=== PATIENT | female | born 1955 | race Caucasian/White ===

== ENCOUNTER 2016-04-24 14:12 | Inpatient (IN) | payer MEDICARE, OTHER ==
[~2016-04-24] VITALS: Ht 152.4 cm; Wt 66.2 kg
[~2016-04-24 14:12] MED LIST: ARIP10TA14 PO; DIVA500T52 PO; DIVA500T69 PO; DSS100 PO; LEVE500T53 PO; TOPI100 PO
[2016-04-24 15:41] LABS: BASOPHILS % (AUTO) 0.3 % (0.0-2.0); HEMOGLOBIN 12.8 g/dL (12.0-16.0); LYMPHOCYTES # (AUTO) 2.2 K/uL (1.0-4.8); LYMPHOCYTES % (AUTO) 52.6 % (22.0-44.0); MEAN CORPUSCULAR HEMOGLOBIN 30.3 pg (26.0-34.0); MEAN CORPUSCULAR HGB CONC 32.9 G/dL (31.0-37.0); MEAN CORPUSCULAR VOLUME 92 fL (80-100); MONOCYTES # (AUTO) 0.5 K/uL (0.1-1.0); MONOCYTES % (AUTO) 11.1 % (2.0-9.0); NEUTROPHILS # (AUTO) 1.4 K/uL (1.8-7.7); PLATELET COUNT (AUTO) 102 K/uL (150-450); RED BLOOD CELL COUNT(AUTO) 4.24 MIL/uL (4.00-5.20); RED CELL DISTRIBUTION WIDTH 15.7 % (11.5-14.5); WHITE BLOOD COUNT (AUTO) 4.1 K/uL (4.5-11.0)
[2016-04-24 16:13] LABS: CALCIUM, TOTAL 8.5 mg/dL (8.8-10.5); CREATININE 1.17 mg/dL (0.60-1.30); POTASSIUM 3.9 mmol/L (3.5-5.1)
[2016-04-24 16:19] LABS: ALBUMIN 3.4 g/dL (3.4-5.0); BILIRUBIN,TOTAL 0.3 mg/dL (0.1-1.0); TOTAL PROTEIN, SERUM 6.5 g/dL (6.4-8.2)
[2016-04-24] MEDS ORDERED: LORazepam 1 MG TABLET PO ONE (17:15)
[2016-04-24] MEDS ORDERED: LevETIRAcetam 500 MG TABLET PO ONE ×2 (17:15→21:00)
[2016-04-24] MEDS ORDERED: TOPIRAMATE 100 MG TABLET PO ONE (21:00)
[2016-04-24] MEDS ORDERED: ARIPiprazole 10 MG TABLET PO ONE (21:00)
[2016-04-25] MEDS ORDERED: ONDANSETRON HCL 4 MG/2 ML VIAL IVP PRN ×2 (10:15→12:45)
[2016-04-25] MEDS ORDERED: ACETAMINOPHEN 325 MG TABLET PO PRN (10:15)
[2016-04-25] MEDS ORDERED: IPRATROPIUM BROMIDE 0.5 MG/2.5 ML NEB SOLUTION NEB PRN (12:45)
[2016-04-25] MEDS ORDERED: ALBUTEROL SULFATE 2.5 MG/0.5 ML NEB SOLUTION NEB PRN (12:45)
[2016-04-25] MEDS ORDERED: ZOLPIDEM TARTRATE 5 MG TABLET PO PRN (12:45)
[2016-04-25] MEDS ORDERED: MAGNESIUM HYDROXIDE SUSPENSION 30 ML UDCUP PO PRN (12:45)
[2016-04-25] MEDS ORDERED: BISACODYL 10 MG RECTAL RECTAL SUPPOSITORY PR PRN (12:45)
[2016-04-25 12:52] VITALS: BP 116/81
[2016-04-25 16:08] VITALS: BP 124/73
[2016-04-25 17:34] LABS: APPEARANCE,URINE CLEAR (CLEAR); GLUCOSE, URINE (UA) NEGATIVE (NEGATIVE); KETONES,URINE NEGATIVE (NEGATIVE); LEUKOCYTE ESTERASE ,URINE SMALL (NEGATIVE); OCCULT BLOOD,URINE NEGATIVE (NEGATIVE); PROTEIN,URINE NEGATIVE (NEGATIVE)
[2016-04-25 17:36] LABS: ADD UA MICROSCOPIC YES
[2016-04-25 17:46] LABS: RBC,URINE 0-2 /HPF (0-2); SQUAMOUS EPITHELIAL CELL,UR Few /LPF (None Seen)
[2016-04-25] MEDS: DOCUSATE SODIUM 100 MG CAPSULE PO SCH (19:53)
[2016-04-25] MEDS: ARIPiprazole 10 MG TABLET PO SCH (19:53)
[2016-04-25] MEDS: LevETIRAcetam 500 MG TABLET PO SCH (19:54)
[2016-04-25] MEDS: DIVALPROEX SODIUM 500 MG ER TABLET PO SCH (19:54)
[2016-04-25] MEDS: TOPIRAMATE 100 MG TABLET PO SCH (19:55)
[2016-04-25 20:36] VITALS: BP 126/76
[2016-04-25] MEDS ORDERED: SODIUM CHLORIDE 0.9% 250 ML IV ONE (21:50)
[2016-04-26 00:04] VITALS: BP 120/74
[2016-04-26] MEDS ORDERED: SODIUM CHLORIDE 0.9% 1,000 ML IV ONE (02:04)
[2016-04-26 04:55] VITALS: BP 100/55
[2016-04-26 07:22] LABS: BASOPHILS % (AUTO) 0.4 % (0.0-2.0); EOSINOPHILS % (AUTO) 3.3 % (1.0-6.0); HEMATOCRIT 39.5 % (36-46); HEMOGLOBIN A1C 5.8 % (4.5-6.2); LYMPHOCYTES # (AUTO) 2.8 K/uL (1.0-4.8); LYMPHOCYTES % (AUTO) 61.8 % (22.0-44.0); MEAN CORPUSCULAR HEMOGLOBIN 30.6 pg (26.0-34.0); MEAN CORPUSCULAR HGB CONC 32.9 G/dL (31.0-37.0); MEAN CORPUSCULAR VOLUME 93 fL (80-100); MONOCYTES # (AUTO) 0.6 K/uL (0.1-1.0); MONOCYTES % (AUTO) 12.3 % (2.0-9.0); NEUTROPHILS % (AUTO) 22.2 % (40.0-70.0); PLATELET COUNT (AUTO) 108 K/uL (150-450); RED BLOOD CELL COUNT(AUTO) 4.25 MIL/uL (4.00-5.20); RED CELL DISTRIBUTION WIDTH 16.6 % (11.5-14.5); WHITE BLOOD COUNT (AUTO) 4.6 K/uL (4.5-11.0)
[2016-04-26 07:57] LABS: ANION GAP 9 mmol/L (8-16); CALCIUM, TOTAL 8.6 mg/dL (8.8-10.5); CARBON DIOXIDE 26 mmol/L (22-29); CHLORIDE 110 mmol/L (98-107); CHOL/HDL RATIO 1.8 (3.9-5.7); CREATINE KINASE, TOTAL 40 U/L (26-192); CREATININE 1.01 mg/dL (0.60-1.30); GLOMERULAR FILTR. RATE CALC 56 mL/min (>60); POTASSIUM 3.4 mmol/L (3.5-5.1); SODIUM SERUM 145 mmol/L (136-145); THYROID STIMULATING HORMONE 5.02 uIU/mL (0.36-3.74); UREA NITROGEN, BLOOD 20 mg/dL (7-18)
[2016-04-26] MEDS: DIVALPROEX SODIUM 500 MG ER TABLET PO SCH ×2 (08:17→20:18)
[2016-04-26] MEDS: DOCUSATE SODIUM 100 MG CAPSULE PO SCH ×2 (08:17→20:17)
[2016-04-26] MEDS: PANTOPRAZOLE SODIUM 40 MG DR TABLET PO SCH (08:17)
[2016-04-26] MEDS: LevETIRAcetam 500 MG TABLET PO SCH ×2 (08:17→20:19)
[2016-04-26] MEDS: ENOXAPARIN SODIUM 40 MG/0.4 ML PF SYRINGE SQ SCH (08:18)
[2016-04-26 08:25] VITALS: BP 113/83
[2016-04-26] MEDS ORDERED: POTASSIUM CHL 10 MEQ/WATER 50 ML IV PRN (11:45)
[2016-04-26] MEDS ORDERED: POTASSIUM CHLORIDE 20 MEQ ER TABLET PO PRN (11:45)
[2016-04-26] MEDS: LEVOFLOXACIN 500 MG/D5% WATER 100 ML IV SCH (12:39)
[2016-04-26] MEDS ORDERED: ACETAMINOPHEN 650 MG/20.3 ML SOLUTION UDCUP PO PRN (14:15)
[2016-04-26] MEDS: ACETAMINOPHEN 325 MG TABLET PO PRN (14:50)
[2016-04-26 15:24] VITALS: BP 120/75
[2016-04-26] MEDS: ARIPiprazole 10 MG TABLET PO SCH (20:19)
[2016-04-26] MEDS: TOPIRAMATE 100 MG TABLET PO SCH (20:19)
[2016-04-26] MEDS: MIRTAZAPINE 15 MG TABLET PO SCH (20:19)
[2016-04-26 20:30] VITALS: BP 116/80
[2016-04-26 23:00] VITALS: BP 115/79
[2016-04-27] MEDS: ACETAMINOPHEN 325 MG TABLET PO PRN ×2 (00:57→23:00)
[2016-04-27 04:00] VITALS: BP 137/80
[2016-04-27] MEDS: LEVOTHYROXINE SODIUM 25 MCG TABLET PO SCH (06:19)
[2016-04-27 07:15] VITALS: BP 112/79
[2016-04-27] MEDS: PANTOPRAZOLE SODIUM 40 MG DR TABLET PO SCH (09:00)
[2016-04-27] MEDS: DOCUSATE SODIUM 100 MG CAPSULE PO SCH ×2 (09:00→21:12)
[2016-04-27] MEDS: DIVALPROEX SODIUM 500 MG ER TABLET PO SCH ×2 (09:00→20:14)
[2016-04-27] MEDS: LevETIRAcetam 500 MG TABLET PO SCH ×2 (09:00→20:14)
[2016-04-27] MEDS: ENOXAPARIN SODIUM 40 MG/0.4 ML PF SYRINGE SQ SCH (09:00)
[2016-04-27 09:56] LABS: BASOPHILS % (AUTO) 0.2 % (0.0-2.0); EOSINOPHILS % (AUTO) 2.2 % (1.0-6.0); HEMATOCRIT 41.1 % (36-46); HEMOGLOBIN 13.4 g/dL (12.0-16.0); LYMPHOCYTES # (AUTO) 3.4 K/uL (1.0-4.8); LYMPHOCYTES % (AUTO) 65.8 % (22.0-44.0); MEAN CORPUSCULAR HEMOGLOBIN 30.2 pg (26.0-34.0); MEAN CORPUSCULAR HGB CONC 32.6 G/dL (31.0-37.0); MEAN CORPUSCULAR VOLUME 92 fL (80-100); MONOCYTES # (AUTO) 0.5 K/uL (0.1-1.0); MONOCYTES % (AUTO) 10.4 % (2.0-9.0); NEUTROPHILS # (AUTO) 1.1 K/uL (1.8-7.7); NEUTROPHILS % (AUTO) 21.4 % (40.0-70.0); PLATELET COUNT (AUTO) 126 K/uL (150-450); RED BLOOD CELL COUNT(AUTO) 4.44 MIL/uL (4.00-5.20); RED CELL DISTRIBUTION WIDTH 16.2 % (11.5-14.5); WHITE BLOOD COUNT (AUTO) 5.2 K/uL (4.5-11.0)
[2016-04-27] MEDS: LEVOFLOXACIN 500 MG/D5% WATER 100 ML IV SCH (12:00)
[2016-04-27 15:00] VITALS: BP 135/83
[2016-04-27 19:49] VITALS: BP 114/90
[2016-04-27] MEDS: ARIPiprazole 10 MG TABLET PO SCH (20:14)
[2016-04-27] MEDS: TOPIRAMATE 100 MG TABLET PO SCH (20:16)
[2016-04-27] MEDS: MIRTAZAPINE 15 MG TABLET PO SCH (20:17)
[2016-04-28] MEDS: LEVOTHYROXINE SODIUM 25 MCG TABLET PO SCH (06:15)
[2016-04-28 06:17] VITALS: BP 106/85
[2016-04-28] MEDS: ENOXAPARIN SODIUM 40 MG/0.4 ML PF SYRINGE SQ SCH (08:11)
[2016-04-28] MEDS: DIVALPROEX SODIUM 500 MG ER TABLET PO SCH (08:12)
[2016-04-28] MEDS: PANTOPRAZOLE SODIUM 40 MG DR TABLET PO SCH (08:12)
[2016-04-28] MEDS: DOCUSATE SODIUM 100 MG CAPSULE PO SCH (08:12)
[2016-04-28] MEDS: LevETIRAcetam 500 MG TABLET PO SCH (08:14)
[2016-04-28 08:15] LABS: BASOPHILS % (AUTO) 0.3 % (0.0-2.0); EOSINOPHILS % (AUTO) 1.8 % (1.0-6.0); HEMATOCRIT 42.3 % (36-46); HEMOGLOBIN 13.9 g/dL (12.0-16.0); LYMPHOCYTES # (AUTO) 3.2 K/uL (1.0-4.8); LYMPHOCYTES % (AUTO) 63.3 % (22.0-44.0); MEAN CORPUSCULAR HEMOGLOBIN 30.6 pg (26.0-34.0); MEAN CORPUSCULAR HGB CONC 32.9 G/dL (31.0-37.0); MEAN CORPUSCULAR VOLUME 93 fL (80-100); MONOCYTES # (AUTO) 0.5 K/uL (0.1-1.0); MONOCYTES % (AUTO) 10.7 % (2.0-9.0); NEUTROPHILS # (AUTO) 1.2 K/uL (1.8-7.7); NEUTROPHILS % (AUTO) 23.9 % (40.0-70.0); PLATELET COUNT (AUTO) 118 K/uL (150-450); RED BLOOD CELL COUNT(AUTO) 4.56 MIL/uL (4.00-5.20); RED CELL DISTRIBUTION WIDTH 15.9 % (11.5-14.5)
== END 2016-04-28 12:30 | DRG 101 ==
LOC: EMS 14:15 → 6N 04-25 11:58
PROVIDERS: ADMIT Internal Medicine Geriatric Medicine; ATTEND Internal Medicine Geriatric Medicine
DX: G40.909 Epilepsy, unspecified, not intractable, without status epilepticus (principal); N39.0 Urinary tract infection, site not specified; R56.9 Unspecified convulsions; D69.6 Thrombocytopenia, unspecified; D72.819 Decreased white blood cell count, unspecified; R26.9 Unspecified abnormalities of gait and mobility; K21.9 Gastro-esophageal reflux disease without esophagitis; J44.9 Chronic obstructive pulmonary disease, unspecified; F25.0 Schizoaffective disorder, bipolar type; M19.90 Unspecified osteoarthritis, unspecified site; F79 Unspecified intellectual disabilities; K59.00 Constipation, unspecified; E78.5 Hyperlipidemia, unspecified; E78.00 Pure hypercholesterolemia, unspecified; E55.9 Vitamin D deficiency, unspecified; E03.9 Hypothyroidism, unspecified; D64.9 Anemia, unspecified; R27.0 Ataxia, unspecified; E87.6 Hypokalemia; G24.01 Drug induced subacute dyskinesia; Z87.891 Personal history of nicotine dependence; Z98.890 Other specified postprocedural states; Z95.0 Presence of cardiac pacemaker; Z88.5 Allergy status to narcotic agent; Z88.6 Allergy status to analgesic agent; Z91.19 Patient's noncompliance with other medical treatment and regimen; Z88.0 Allergy status to penicillin; Z79.899 Other long term (current) drug therapy; Z83.3 Family history of diabetes mellitus
CPT/HCPCS: 70450; 82306; 82607; 82746; 83036; 83735; 84132; 84439; 84443; 87086; 97161; 99285; G0482; J1650; J1956; J7030; J7050

== ENCOUNTER 2016-05-04 23:13 | Emergency (ER) | payer MEDICARE, OTHER ==
[~2016-05-04] VITALS: Ht 162.6 cm; Wt 65.9 kg
[2016-05-04] MEDS ORDERED: PANT40TA25 PO (23:47)
[2016-05-04] MEDS ORDERED: AUD NEB (23:47)
[2016-05-04] MEDS ORDERED: LEVO25TA9 PO (23:47)
[2016-05-04] MEDS ORDERED: MIRT15 PO (23:47)
[2016-05-05 00:52] LABS: BASOPHILS % (AUTO) 0.2 % (0.0-2.0); EOSINOPHILS % (AUTO) 0.3 % (1.0-6.0); HEMATOCRIT 41.9 % (36-46); HEMOGLOBIN 13.9 g/dL (12.0-16.0); LYMPHOCYTES # (AUTO) 2.3 K/uL (1.0-4.8); LYMPHOCYTES % (AUTO) 44.2 % (22.0-44.0); MEAN CORPUSCULAR HEMOGLOBIN 30.5 pg (26.0-34.0); MEAN CORPUSCULAR HGB CONC 33.1 G/dL (31.0-37.0); MEAN CORPUSCULAR VOLUME 92 fL (80-100); MONOCYTES # (AUTO) 0.6 K/uL (0.1-1.0); MONOCYTES % (AUTO) 11.3 % (2.0-9.0); NEUTROPHILS # (AUTO) 2.2 K/uL (1.8-7.7); PLATELET COUNT (AUTO) 106 K/uL (150-450); RED BLOOD CELL COUNT(AUTO) 4.55 MIL/uL (4.00-5.20); RED CELL DISTRIBUTION WIDTH 16.4 % (11.5-14.5); WHITE BLOOD COUNT (AUTO) 5.1 K/uL (4.5-11.0)
[2016-05-05 00:57] LABS: ANION GAP 11 mmol/L (8-16); CALCIUM, TOTAL 8.1 mg/dL (8.8-10.5); CARBON DIOXIDE 28 mmol/L (22-29); CHLORIDE 104 mmol/L (98-107); CREATININE 1.12 mg/dL (0.60-1.30); GLOMERULAR FILTR. RATE CALC 50 mL/min (>60); POTASSIUM 3.6 mmol/L (3.5-5.1); SODIUM SERUM 143 mmol/L (136-145); UREA NITROGEN, BLOOD 37 mg/dL (7-18)
[2016-05-05 01:04] LABS: ALANINE AMINOTRANSFERASE 30 U/L (12-78); ALBUMIN 3.3 g/dL (3.4-5.0); ASPARTATE AMINOTRANSFERASE 47 U/L (15-37); BILIRUBIN,TOTAL 0.4 mg/dL (0.1-1.0); TOTAL PROTEIN, SERUM 6.9 g/dL (6.4-8.2)
[2016-05-05 01:18] LABS: VALPROIC ACID 77 mcg/mL (50-100)
[2016-05-05 02:38] VITALS: BP 113/75
== END 2016-05-05 03:04 | disposition home or self-care (01) ==
LOC: EMS 23:15
DX: F25.9 Schizoaffective disorder, unspecified (principal); J44.9 Chronic obstructive pulmonary disease, unspecified; E03.9 Hypothyroidism, unspecified; E78.00 Pure hypercholesterolemia, unspecified; K21.9 Gastro-esophageal reflux disease without esophagitis; Z88.0 Allergy status to penicillin; Z88.6 Allergy status to analgesic agent
CPT/HCPCS: 36415; 71010; 80053; 80164; 84484; 85025; 93005; 99285; G0480

== ENCOUNTER 2022-10-08 19:03 | Emergency (ER) | payer MEDICARE, MEDICAID ==
[~2022-10-08] VITALS: Ht 152.4 cm; Wt 84.1 kg
[~2022-10-08 19:03] MED LIST changes: +ALBU2.5V39 NEB; -ARIP10TA14 PO; +ARIP10TA38 PO; -DIVA500T52 PO; +DIVA500T53 PO; -DSS100 PO; +LEVE500T20 PO; -LEVE500T53 PO; +LEVO25TA9 PO; +MIRT-89 PO; +PANT-31 PO; -TOPI100 PO; +TOPI100T37 PO
[2022-10-08 21:11] LABS: BASOPHILS % (AUTO) 0.5 % (0.0-2.0); EOSINOPHILS % (AUTO) 1.6 % (1.0-6.0); HEMATOCRIT 37.4 % (36-46); HEMOGLOBIN 12.5 g/dL (12.0-16.0); LYMPHOCYTES # (AUTO) 2.5 K/uL (1.0-4.8); LYMPHOCYTES % (AUTO) 34.7 % (22.0-44.0); MEAN CORPUSCULAR HEMOGLOBIN 30.7 pg (26.0-34.0); MEAN CORPUSCULAR HGB CONC 33.3 G/dL (31.0-37.0); MEAN CORPUSCULAR VOLUME 92 fL (80-100); MONOCYTES # (AUTO) 0.7 K/uL (0.1-1.0); MONOCYTES % (AUTO) 9.3 % (2.0-9.0); NEUTROPHILS # (AUTO) 3.8 K/uL (1.8-7.7); NEUTROPHILS % (AUTO) 53.9 % (40.0-70.0); PLATELET COUNT (AUTO) 191 K/uL (150-450); RED BLOOD CELL COUNT(AUTO) 4.05 MIL/uL (4.00-5.20); RED CELL DISTRIBUTION WIDTH 14.9 % (11.5-14.5)
[2022-10-08 21:29] LABS: ASPARTATE AMINOTRANSFERASE 5 U/L (15-37); CARBON DIOXIDE 26 mmol/L (22-29); CREATININE 1.07 mg/dL (0.60-1.30); GLOMERULAR FILTR. RATE CALC 51 mL/min (>60); GLUCOSE,RANDOM 105 mg/dL (70-110)
[2022-10-08 22:01] LABS: ALANINE AMINOTRANSFERASE 14 U/L (12-78); ALBUMIN 3.6 g/dL (3.4-5.0); ALKALINE PHOSPHATASE 106 U/L (46-116); ANION GAP 11 mmol/L (8-16); BILIRUBIN,TOTAL 0.2 mg/dL (0.1-1.0); CHLORIDE 105 mmol/L (98-107); POTASSIUM 3.6 mmol/L (3.5-5.1); SODIUM SERUM 142 mmol/L (136-145); TOTAL PROTEIN, SERUM 7.2 g/dL (6.4-8.2)
[2022-10-09 00:54] VITALS: TEMP 98.3
[2022-10-09] MEDS ORDERED: LORazepam 2 MG TABLET PO ONE (01:45)
[2022-10-09] MEDS ORDERED: QUET200T30 PO (02:24)
[2022-10-09] MEDS ORDERED: BENZ0.5T49 PO (02:24)
[2022-10-09] MEDS ORDERED: LEVE750T10 PO (02:24)
[2022-10-09] MEDS ORDERED: FURO20TA4 PO (02:24)
[2022-10-09] MEDS ORDERED: LACT10SO75 (02:24)
[2022-10-09] MEDS ORDERED: POTA-206 PO (02:24)
[2022-10-09] MEDS ORDERED: FAMO20 PO (02:24)
[2022-10-09] MEDS ORDERED: TOPI-255 PO (02:24)
[2022-10-09] MEDS ORDERED: LISI5TAB21 PO (02:24)
[2022-10-09] MEDS ORDERED: LEVO88TA7 PO (02:24)
[2022-10-09] MEDS ORDERED: GABA-1181 PO (02:24)
[2022-10-09] MEDS ORDERED: GuaiFENesin/D-METHORPHAN [SUGAR-FREE] 200-20MG/10 ML SYRUP UDCUP PO PRN (02:30)
[2022-10-09] MEDS ORDERED: OLANZapine 5 MG RAPDIS TABLET PO PRN (02:30)
[2022-10-09] MEDS ORDERED: LOPERAMIDE HCL 2 MG CAPSULE PO PRN (02:30)
[2022-10-09] MEDS ORDERED: MAGNESIUM HYDROXIDE SUSPENSION 30 ML UDCUP PO PRN (02:30)
[2022-10-09] MEDS ORDERED: MAG HYDROX/AL HYDROX/SIMETH ES 30 ML SUSPENSION UDCUP PO PRN (02:30)
[2022-10-09] MEDS ORDERED: LORazepam 1 MG TABLET PO PRN (02:30)
[2022-10-09] MEDS ORDERED: ACETAMINOPHEN 325 MG TABLET PO PRN (02:30)
[2022-10-09] MEDS ORDERED: PROMETHAZINE HCL 25 MG TABLET PO PRN (02:30)
[2022-10-09] MEDS ORDERED: HydrOXYzine PAMOATE 50 MG CAPSULE PO PRN (02:30)
[2022-10-09] MEDS ORDERED: ZOLPIDEM TARTRATE 10 MG TABLET PO PRN (02:30)
[2022-10-09 03:12] LABS: COVID AG,FIA SOURCE NASAL SWAB
[2022-10-09] MEDS ORDERED: LevETIRAcetam 500 MG TABLET PO SCH (09:00)
[2022-10-09] MEDS ORDERED: MULTIVITAMINS WITH MINERALS, THERAPEUTIC TABLET PO SCH (09:00)
[2022-10-09] MEDS ORDERED: THIAMINE 100 MG TABLET PO SCH (09:00)
[2022-10-09] MEDS ORDERED: FOLIC ACID 1 MG TABLET PO SCH (09:00)
[2022-10-09] MEDS ORDERED: DIVALPROEX SODIUM 500 MG ER TABLET PO SCH (09:00)
[2022-10-09 09:39] VITALS: BP 120/79; PULSE 79; RESP 16
[2022-10-09 14:30] LABS: AMPHET/METH SCREEN,URINE NEGATIVE (NEGATIVE); BARBITURATE SCREEN, URINE NEGATIVE (NEGATIVE); BENZODIAZEPINES SCREEN,URINE NEGATIVE (NEGATIVE); CANNABINOID SCREEN,URINE NEGATIVE (NEGATIVE); COCAINE SCREEN,URINE NEGATIVE (NEGATIVE); METHADONE SCREEN, URINE NEGATIVE (NEGATIVE); OPIATE SCREEN,URINE NEGATIVE (NEGATIVE); PHENCYCLIDINE SCREEN,URINE NEGATIVE (NEGATIVE)
== END 2022-10-09 15:38 | disposition short-term general hospital (02) ==
LOC: EMS 19:03
DX: F20.0 Paranoid schizophrenia (principal); J44.9 Chronic obstructive pulmonary disease, unspecified; Z86.69 Personal history of other diseases of the nervous system and sense organs; E78.00 Pure hypercholesterolemia, unspecified; E03.9 Hypothyroidism, unspecified; Z98.890 Other specified postprocedural states; Z88.0 Allergy status to penicillin; Z88.6 Allergy status to analgesic agent; Z20.822 Contact with and (suspected) exposure to COVID-19
CPT/HCPCS: 99285; 87426; 80053; 80164; 85025; 36415; 80307; G0480